=== PATIENT | female | born 1970 | race Caucasian/White ===

== ENCOUNTER 2017-07-09 14:24 | Emergency (ER) | payer SELFPAY ==
[~2017-07-09] VITALS: Ht 165.1 cm; Wt 81.6 kg
[~2017-07-09 14:24] MED LIST: ATIVAN1 MG PO; BIRTH CONTROL1 EAC1 PO; VICODIN 5/500 505 MG PO; ZITHROMAX250 MG PO; ZOLOFT50 MG PO
[2017-07-09] MEDS ORDERED: ATIVAN0.5 MG PO (14:37)
[2017-07-09 15:14] LABS: BASO % 0.3 % (0.0-1.0); EOS # 0.1 10*3/uL (0.0-0.4); EOS % 0.7 % (1.0-4.0); HEMATOCRIT 38.1 % (37.0-47.0); HEMOGLOBIN 12.8 g/dl (12.0-16.0); LYMPH # 1.5 10*3/uL (1.3-4.4); LYMPH % 12.6 % (27.0-41.0); MEAN CELL VOLUME 92.7 fl (81.0-99.0); MEAN CORPUSCULAR HGB 31.1 pg (27.0-31.0); MEAN CORPUSCULAR HGB CONC 33.6 g/dl (33.0-37.0); MEAN PLATELET VOLUME 9.4 fl (9.6-12.3); MONO # 0.8 10*3/uL (0.1-1.0); MONO % 6.7 % (3.0-9.0); NEUT # 9.2 10*3/uL (2.3-7.9); NEUT % 79.3 % (47.0-73.0); PLATELET COUNT AUTOMATED 237 10*3/uL (130-400); RED BLOOD COUNT 4.11 10*6/uL (4.10-5.10); RED CELL DISTRI WIDTH 12.6 % (0-14.5); WHITE BLOOD COUNT 11.6 10*3/uL (4.8-10.8)
[2017-07-09 15:28] LABS: ALBUMIN 3.1 gm/dl (3.1-4.5); ALKALINE PHOSPHATASE 86 U/L (45-117); BUN 12 mg/dl (7-24); CHLORIDE 103 mmol/L (98-107); CREATININE 0.76 mg/dL (0.55-1.02); POTASSIUM 3.9 mmol/L (3.5-5.1); SGOT/AST 14 IU/L (3-35); SGPT/ALT 25 U/L (12-78); SODIUM 135 mmol/L (136-145); TOTAL PROTEIN 7.6 gm/dL (6.4-8.2)
[2017-07-09 16:50] VITALS: BP 118/68
[2017-07-09] MEDS ORDERED: DELTASONE20 M1 PO (16:58)
[2017-07-09] MEDS ORDERED: ZITHROMAX250 MG PO (16:58)
[2017-07-09] MEDS ORDERED: DUONEB 3 MG/3 ML3 M1 INH (16:58)
== END 2017-07-09 17:10 | disposition home or self-care (01) ==
LOC: ED 14:24
PROVIDERS: Physician Assistant
DX: J18.9 Pneumonia, unspecified organism (principal); F17.200 Nicotine dependence, unspecified, uncomplicated; Z90.49 Acquired absence of other specified parts of digestive tract; Z98.890 Other specified postprocedural states; Z88.3 Allergy status to other anti-infective agents; Z79.899 Other long term (current) drug therapy

== ENCOUNTER 2019-05-24 14:49 | Emergency (ER) | payer SELFPAY ==
[~2019-05-24] VITALS: Ht 165.1 cm; Wt 86.2 kg
[~2019-05-24 14:49] MED LIST changes: +ATIVAN0.5 MG PO; +DELTASONE20 M1 PO; +DUONEB 3 MG/3 ML3 M1 INH
[2019-05-24 15:04] VITALS: BP 117/49
[2019-05-24] MEDS ORDERED: SEPTDS PO (16:18)
== END 2019-05-24 17:05 | disposition home or self-care (01) ==
LOC: ED 14:49
DX: L02.214 Cutaneous abscess of groin (principal); F17.200 Nicotine dependence, unspecified, uncomplicated; Z88.1 Allergy status to other antibiotic agents; Z79.899 Other long term (current) drug therapy

== ENCOUNTER 2020-09-08 14:01 | Emergency (ER) | payer SELFPAY ==
[~2020-09-08] VITALS: Ht 165.1 cm; Wt 81.6 kg
[~2020-09-08 14:01] MED LIST changes: +SEPTDS PO
[2020-09-08 14:39] VITALS: BP 116/68
[2020-09-08 14:54] LABS: BILIRUBIN Negative (Negative); BLOOD Trace-Intact (Negative); CLARITY Cloudy (Clear); COLOR Yellow (Yellow); GLUCOSE Negative (Negative); KETONE Trace (Negative); LEUKO ESTERASE 3+ (Negative); NITRITE Negative (Negative)
[2020-09-08 15:02] LABS: BACTERIA 3+; WBC 51-100 wbc/hpf (0-5)
[2020-09-08] MEDS ORDERED: PYRIDIUM200 M1 PO (15:33)
[2020-09-08] MEDS ORDERED: DIFLUCAN150 MG PO (15:33)
[2020-09-08] MEDS ORDERED: MACROBID100 M1 PO (15:33)
== END 2020-09-08 15:41 | disposition home or self-care (01) ==
LOC: ED 14:01
PROVIDERS: Emergency Medicine
DX: R30.0 Dysuria (principal); Z88.8 Allergy status to other drugs, medicaments and biological substances; Z79.899 Other long term (current) drug therapy; Z90.49 Acquired absence of other specified parts of digestive tract

== ENCOUNTER → 2022-08-12 | Outpatient (CLI) | payer OTHER ==
[~2022-08-12] MED LIST changes: +DIFLUCAN150 MG PO; +MACROBID100 M1 PO; +PYRIDIUM200 M1 PO
== END | disposition home or self-care (01) ==
LOC: MAMMO 01:15
PROVIDERS: ATTEND Internal Medicine Nephrology
DX: Z12.31 Encounter for screening mammogram for malignant neoplasm of breast (principal); N64.89 Other specified disorders of breast

== ENCOUNTER → 2023-06-15 | Outpatient (CLI) | payer OTHER | END | disposition home or self-care (01) | LOC: RAD 12:25 | PROVIDERS: ATTEND Internal Medicine | DX: J84.9 Interstitial pulmonary disease, unspecified (principal); J44.1 Chronic obstructive pulmonary disease with (acute) exacerbation ==

== ENCOUNTER → 2024-12-20 | Outpatient (CLI) | payer OTHER | END | disposition home or self-care (01) | LOC: RAD 13:38 | PROVIDERS: ATTEND Internal Medicine | DX: M18.0 Bilateral primary osteoarthritis of first carpometacarpal joints (principal); M79.641 Pain in right hand ==